=== PATIENT | male | born 1945 | race Caucasian/White ===

== ENCOUNTER 2019-05-28 14:55 | Outpatient (CLI) | payer MEDICARE, SELFPAY ==
--- NOTE | 2019-05-28 15:07 | XR_ITS ---
WS: [id number] LEFT FOOT: 3 VIEW(S) TECHNIQUE: PA, oblique and lateral. HISTORY: PAIN/REDNESS/NON HEALING ULCER COMPARISON: None available. Severe degenerative changes at the first metatarsophalangeal joint. Erosions involving the first meta tarsal head and second metatarsal head. Interphalangeal joint space narrowing. There is a soft tissue defect medial to the first distal phalanx. Erosion measures 17 mm. No underlying osteomyelitis. Ther e is some increased density at the erosion site which may be due to packing material. Normal tarsal/metatarsal alignment. Moderate calcaneal spur. Moderate peripheral arterial calcifications. XR/XR foot LT min 3V* [id number] IMPRESSION: 1. Soft tissue ulceration adjacent to the medial first toe. No underlying oste omyelitis. 2. Peripheral arterial calcifications. 3. First toe second metatarsal head erosions. Consider inflammatory arthritis.
== END 2019-05-28 14:56 | disposition home or self-care (01) ==
PROVIDERS: Family Provider Family Medicine; PCP Family Medicine; Visit Provider Internal Medicine
DX: M79.672 Pain in left foot (principal); L53.9 Erythematous condition, unspecified; L97.529 Non-pressure chronic ulcer of other part of left foot with unspecified severity; M85.872 Other specified disorders of bone density and structure, left ankle and foot; L98.499 Non-pressure chronic ulcer of skin of other sites with unspecified severity
CPT/HCPCS: 11042; 73630

== ENCOUNTER 2019-06-11 14:21 | Outpatient (RCR) | payer MEDICARE, SELFPAY | END 2019-06-12 23:59 | disposition home or self-care (01) | LOC: WOUND 14:21 | PROVIDERS: Family Provider Family Medicine; PCP Family Medicine; Visit Provider Surgery | DX: E11.621 Type 2 diabetes mellitus with foot ulcer (principal); L97.522 Non-pressure chronic ulcer of other part of left foot with fat layer exposed | CPT/HCPCS: 11042; 99203; G0463; L3260; L4387 ==

== ENCOUNTER 2019-07-09 09:18 | Outpatient (RCR) | payer MEDICARE, SELFPAY | END 2019-07-13 23:59 | disposition home or self-care (01) | LOC: WOUND 09:18 | PROVIDERS: Family Provider Family Medicine; PCP Family Medicine; Visit Provider Surgery | DX: E11.621 Type 2 diabetes mellitus with foot ulcer (principal); L97.522 Non-pressure chronic ulcer of other part of left foot with fat layer exposed | CPT/HCPCS: 11042 ==

== ENCOUNTER 2019-08-06 13:26 | Outpatient (RCR) | payer MEDICARE, SELFPAY | END 2019-08-12 23:59 | disposition home or self-care (01) | LOC: WOUND 13:26 | PROVIDERS: Family Provider Family Medicine; PCP Family Medicine; Visit Provider Surgery | DX: E11.621 Type 2 diabetes mellitus with foot ulcer (principal); L97.522 Non-pressure chronic ulcer of other part of left foot with fat layer exposed | CPT/HCPCS: 11042; L3260 ==

== ENCOUNTER → 2019-08-12 11:03 | Outpatient (BNVA) | payer MEDICARE, SELFPAY | PROVIDERS: Family Provider Family Medicine; PCP Family Medicine; Referring Provider Surgery; Visit Provider Podiatrist Foot & Ankle Surgery | DX: M79.671 Pain in right foot (principal) | CPT/HCPCS: 73630 ==

== ENCOUNTER 2019-08-13 13:42 | Outpatient (CLI) | payer MEDICARE, SELFPAY | END 2019-08-13 13:43 | disposition home or self-care (01) | LOC: WOUND 08-16 13:35 | PROVIDERS: Family Provider Family Medicine; PCP Family Medicine; Visit Provider Surgery | DX: E11.621 Type 2 diabetes mellitus with foot ulcer (principal); L97.522 Non-pressure chronic ulcer of other part of left foot with fat layer exposed | CPT/HCPCS: 11042 ==

== ENCOUNTER 2019-08-20 10:27 | Outpatient (CLI) | payer MEDICARE, SELFPAY | END 2019-08-20 10:28 | disposition home or self-care (01) | LOC: WOUND 10:28 | PROVIDERS: Family Provider Family Medicine; PCP Family Medicine; Visit Provider Surgery | DX: E11.621 Type 2 diabetes mellitus with foot ulcer (principal); L97.522 Non-pressure chronic ulcer of other part of left foot with fat layer exposed | CPT/HCPCS: 11042 ==

== ENCOUNTER 2019-08-27 09:52 | Outpatient (CLI) | payer MEDICARE, SELFPAY | END 2019-08-27 09:53 | disposition home or self-care (01) | LOC: WOUND 09:53 | PROVIDERS: Family Provider Family Medicine; PCP Family Medicine; Visit Provider Surgery | DX: E11.621 Type 2 diabetes mellitus with foot ulcer (principal); L97.522 Non-pressure chronic ulcer of other part of left foot with fat layer exposed | CPT/HCPCS: 11042 ==

== ENCOUNTER 2019-09-03 10:29 | Outpatient (CLI) | payer MEDICARE, SELFPAY | END 2019-09-03 10:30 | disposition home or self-care (01) | LOC: WOUND 10:30 | PROVIDERS: Family Provider Family Medicine; PCP Family Medicine; Visit Provider Surgery | DX: E11.621 Type 2 diabetes mellitus with foot ulcer (principal); L97.522 Non-pressure chronic ulcer of other part of left foot with fat layer exposed | CPT/HCPCS: 11042; 73630 ==

== ENCOUNTER 2019-09-03 11:29 | Outpatient (CLI) | payer MEDICARE, SELFPAY ==
--- NOTE | 2019-09-03 11:33 | XR_ITS ---
WS: [id number] LEFT FOOT: 3 VIEW(S) TECHNIQUE: AP, oblique and lateral. HISTORY: PAIN REDNESS, NON HEALING ULCER COMPARISON: 08/12/2019 Again noted is a very superficial soft tissue ulceration adjacent to the distal phalanx of the first toe. No osteomyelitis is identified radiographically. There is soft tissue edema surrounding the firs t toe with interphalangeal joint space narrowing. Hallux valgus of the first metatarsophalangeal join t with cystic changes. Flattening and cystic changes involving the second metatarsal head. Moderate calcaneal spur. Extensive atherosclerosis within the anterior posterior tibial arteries. XR/XR foot LT min 3V* [id number] IMPRESSION: 1. Superficial soft tissue ulceration associated with the distal phalanx first toe. 2. No osteomyelitis seen radiographically. 3. Additional degenerative changes at the first and second metatarsal heads as above.
== END 2019-09-03 11:30 | disposition home or self-care (01) ==
LOC: RADWPI 11:32
PROVIDERS: Family Provider Family Medicine; PCP Family Medicine; Visit Provider Surgery
DX: L97.522 Non-pressure chronic ulcer of other part of left foot with fat layer exposed (principal); E11.621 Type 2 diabetes mellitus with foot ulcer
CPT/HCPCS: 73630

== ENCOUNTER 2019-09-10 09:27 | Outpatient (CLI) | payer MEDICARE, SELFPAY | END 2019-09-10 09:28 | disposition home or self-care (01) | LOC: WOUND 09:29 | PROVIDERS: Family Provider Family Medicine; PCP Family Medicine; Visit Provider Surgery | DX: E11.621 Type 2 diabetes mellitus with foot ulcer (principal); L97.522 Non-pressure chronic ulcer of other part of left foot with fat layer exposed | CPT/HCPCS: 11042 ==

== ENCOUNTER 2019-09-14 08:51 | Outpatient (CLI) | payer MEDICARE, SELFPAY ==
--- NOTE | 2019-09-14 09:04 | USCV_ITS ---
Guille Brian Age: 73 Gender: M : 1945 Exam Date: 09/14/2019 08:55 Ordering Phys: Sterling Nieves MD Technologist: Exam Location: [facility] – [place]_ Indication: non healing ulcer RIGHT LEFT Brachial 123.00 mmHg Brachial 140.00 mmHg Pressure (mmHg) Waveform Pressure (mmHg) Waveform 122.00 Pre-Exercise Toe Pressure 104.00 0.87 Pre-Exercise Toe/Brachial Index 0.74 FINDINGS Left second digit used for TBI's Bilateral ankle pressures >220 Supernormal resting ABIs bilaterally Normal resting TBIs bilaterally PVR waveforms showing loss of dicrotic notch, but of suboptimal quality. CONCLUSIONS 1. Supernormal resting GREGG with a normal TBIs bilaterally, suggesting no significant arterial obstruction 2. Features of extensive arterial sclerosis bilaterally Dr Timoteo Ventura MD FACC (Electronically Signed) Final Date: 15 September 2019 18:39 S
[2019-09-14 11:34] LABS: Alanine Aminotransferase 32 U/L (0-41); Albumin Level 4.6 g/dL (3.5-5.2); Alkaline Phosphatase 65 IU/L (40-130); Anion Gap 18.9 (5-19); Aspartate Amino Transferase 29 U/L (0-40); Blood Urea Nitrogen 10 mg/dL (8-23); Calcium 10.4 mg/dL (8.5-10.5); Carbon Dioxide 24 mmol/L (22-29); Chloride 93 mmol/L (98-107); Globulin 3.8 g/dL (1.3-4.6); Glucose 151 mg/dL (65-115); Osmolality Calculated 271 mOsm/kg (285-295); Potassium 4.9 mmol/L (3.5-5.1); Sodium 131 mmol/L (136-145); Total Bilirubin 0.6 mg/dL (0.15-1.2); Total Protein 8.4 g/dL (6.6-8.7)
[2019-09-14 12:27] LABS: Prealbumin 24.1 mg/dL (20-40)
== END 2019-09-14 08:52 | disposition home or self-care (01) ==
PROVIDERS: Family Provider Family Medicine; PCP Family Medicine; Visit Provider Surgery
DX: L97.929 Non-pressure chronic ulcer of unspecified part of left lower leg with unspecified severity (principal); L97.919 Non-pressure chronic ulcer of unspecified part of right lower leg with unspecified severity; M79.605 Pain in left leg; M79.604 Pain in right leg
CPT/HCPCS: 36415; 80053; 84134; 93923

== ENCOUNTER 2019-09-17 09:27 | Outpatient (CLI) | payer MEDICARE, SELFPAY | END 2019-09-17 09:28 | disposition home or self-care (01) | LOC: WOUND 09:28 | PROVIDERS: Family Provider Family Medicine; PCP Family Medicine; Visit Provider Surgery | DX: E11.621 Type 2 diabetes mellitus with foot ulcer (principal); L97.522 Non-pressure chronic ulcer of other part of left foot with fat layer exposed | CPT/HCPCS: 11042 ==

== ENCOUNTER 2019-09-24 10:44 | Outpatient (CLI) | payer MEDICARE, SELFPAY | END 2019-09-24 10:45 | disposition home or self-care (01) | LOC: WOUND 10:49 | PROVIDERS: Family Provider Family Medicine; PCP Family Medicine; Visit Provider Nurse Practitioner Family | DX: E11.621 Type 2 diabetes mellitus with foot ulcer (principal); L97.521 Non-pressure chronic ulcer of other part of left foot limited to breakdown of skin | CPT/HCPCS: 11042 ==

== ENCOUNTER 2019-09-30 14:53 | Outpatient (CLI) | payer MEDICARE, SELFPAY | END 2019-09-30 14:54 | disposition home or self-care (01) | LOC: WOUND 15:02 | PROVIDERS: Family Provider Family Medicine; PCP Family Medicine; Visit Provider Nurse Practitioner Family | DX: E11.621 Type 2 diabetes mellitus with foot ulcer (principal); L97.522 Non-pressure chronic ulcer of other part of left foot with fat layer exposed | CPT/HCPCS: G0463 ==

== ENCOUNTER 2019-10-07 14:49 | Outpatient (CLI) | payer MEDICARE, SELFPAY | END 2019-10-07 14:50 | disposition home or self-care (01) | LOC: WOUND 14:54 | PROVIDERS: Family Provider Family Medicine; PCP Family Medicine; Visit Provider Nurse Practitioner Family | DX: E11.621 Type 2 diabetes mellitus with foot ulcer (principal); L97.522 Non-pressure chronic ulcer of other part of left foot with fat layer exposed | CPT/HCPCS: 11042 ==

== ENCOUNTER 2019-10-14 15:27 | Outpatient (CLI) | payer MEDICARE, SELFPAY | END 2019-10-14 15:28 | disposition home or self-care (01) | LOC: WOUND 15:28 | PROVIDERS: Family Provider Family Medicine; PCP Family Medicine; Visit Provider Nurse Practitioner Family | DX: E11.621 Type 2 diabetes mellitus with foot ulcer (principal); L97.521 Non-pressure chronic ulcer of other part of left foot limited to breakdown of skin | CPT/HCPCS: 11042 ==

== ENCOUNTER 2020-07-04 13:02 | Outpatient (CLI) | payer MEDICARE, SELFPAY ==
[2020-07-04 14:36] LABS: Anion Gap 16.2 (5-19); Blood Urea Nitrogen 5 mg/dL (8-23); Calcium 9.1 mg/dL (8.5-10.5); Carbon Dioxide 26 mmol/L (22-29); Chloride 92 mmol/L (98-107); Glucose 114 mg/dL (65-115); Osmolality Calculated 268 mOsm/kg (285-295); Potassium 4.2 mmol/L (3.5-5.1); Sodium 130 mmol/L (136-145)
[2020-07-04 14:38] LABS: Estmated Average Glucose 117; Hemoglobin A1C 5.7 % (4.0-6.0)
== END 2020-07-04 13:03 | disposition home or self-care (01) ==
PROVIDERS: PCP Family Medicine; Visit Provider Nurse Practitioner Family
DX: E11.9 Type 2 diabetes mellitus without complications (principal); E78.5 Hyperlipidemia, unspecified; G62.9 Polyneuropathy, unspecified
CPT/HCPCS: 80048; 83036